=== PATIENT | male | born 1960 | race Caucasian/White ===

== ENCOUNTER 2020-07-27 13:58 | Emergency (ER) | payer BC ==
[~2020-07-27] VITALS: Ht 185.4 cm; Wt 102.0 kg
[2020-07-27 14:05] VITALS: BP 204/120
[2020-07-27] MEDS ORDERED: LIDOcaine 1% 30ml preserv. free vial IJ ONE (14:10)
[2020-07-27] MEDS ORDERED: TETanus/Pertussis (Acell)/Diphther VAC/PF (Tdap-Adult) 0.5ml syringe IMVAC ONE (14:10)
== END 2020-07-27 18:20 | disposition home or self-care (01) ==
LOC: ER 13:59
DX: S61.011A Laceration without foreign body of right thumb without damage to nail, initial encounter (principal); Z20.3 Contact with and (suspected) exposure to rabies; Z72.89 Other problems related to lifestyle; W45.8XXA Other foreign body or object entering through skin, initial encounter; Y93.89 Activity, other specified; Y92.89 Other specified places as the place of occurrence of the external cause; Y99.8 Other external cause status
CPT/HCPCS: 12001; 73130; 90471; 90715; 99283